=== PATIENT | female | born 1995 | race Caucasian/White ===

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

== ENCOUNTER → 2017-05-07 | Outpatient (CLI) | payer OTHER | END | disposition home or self-care (01) | LOC: C.LABSPEC 10:46 | PROVIDERS: ATTEND Physician Assistant | DX: Z01.419 Encounter for gynecological examination (general) (routine) without abnormal findings (principal) ==

== ENCOUNTER → 2017-08-19 | Outpatient (CLI) | payer OTHER | END | disposition home or self-care (01) | LOC: C.LAB1850 10:07 | PROVIDERS: ATTEND Obstetrics & Gynecology | DX: R39.9 Unspecified symptoms and signs involving the genitourinary system (principal) ==

== ENCOUNTER 2024-09-21 15:21 | Inpatient (IN) ==
[2024-09-21] MEDS ORDERED: ACETAMINOPHEN 325 MG TAB PO PRN (15:42)
[2024-09-21] MEDS ORDERED: LIDOCAINE 1% LOCAL 20 ML VIAL INFIL PRN (15:42)
[2024-09-21] MEDS ORDERED: CALCIUM CARBONATE 500 MG CHEWABLE TAB PO PRN (15:42)
[2024-09-21] MEDS ORDERED: DINOPROSTONE 10 MG INSERT PV ONE (15:42)
[2024-09-21] MEDS ORDERED: OXYTOCIN 30 UNITS/NSS 30 UNITS/500 ML BAG IV PRN (15:42)
[2024-09-21 16:22] LABS: Hematocrit (blood only) 38.7 % (37.0-47.0); Hemoglobin 12.9 g/dl (12.0-16.0); Mean Corpuscular Hemoglobin 27.5 pg (25.0-34.0); Mean Corpuscular Hgb Conc 33.3 g/dL (32.0-36.0); Mean Corpuscular Volume 82.5 fL (80.0-100.0); Mean Platelet Volume 10.3 fL (9.4-12.4); Platelet Count 260 K/uL (130-400); RDW Coefficient of Variation 13.1 % (11.5-14.5); RDW Standard Deviation 38.6 fL (36.4-46.3); Red Blood Count 4.69 M/uL (4.20-5.40); White Blood Count 11.76 K/ul (4.8-10.8)
[2024-09-21 16:38] LABS: Albumin Globulin Ratio 1.1 (0.9-2); Albumin Level 3.6 gm/dl (3.4-5.0); BUN Creatinine Ratio 15.1 (10-20); Bilirubin,Total 0.3 mg/dl (0.2-1.0); Calcium 9.4 mg/dl (8.6-10.3); Creatinine Clr Calc Pharmacy 148.3 ml/min; Globulin 3.2 gm/dl (2.5-4.0); Potassium 3.7 mmol/L (3.5-5.1); Total Protein 6.8 gm/dl (6.0-8.3)
--- NOTE | 2024-09-21 16:49 | History & Physical Report ---
Date of Service September 21, 2024 Assessment & Plan (1) Post-term , 40-42 weeks of gestation: Plan: 29-year-old at 40 weeks and 2 days of gestation, presenting today for scheduled induction of labor for postdates, Vital signs stable afebrile, GBS negative, heart rate reassuring, Cervix favorable, early labor Plan to admit, monitor, labs, start oxytocin per protocol, discussed what to expect, All questions were answered. (2) Encounter for induction of labor: Admission and Anticipated Discharge Date Admission Date: September 21, 2024 History of Present Illness Primary Care Provider: Ale Acuna MD Patient is a 29-year-old at 40 weeks and 2 days of gestation who was scheduled for induction of labor for postdates. She has no complaints other than being nervous. She denies contractions, leakage of fluid, vaginal bleeding. She reports good movements. She denies chest pain, shortness of breath, palpitations, headaches, change in her vision, nausea vomiting, abdominal pain. Her has been uncomplicated. GBS negative Allergies Allergy/AdvReac Type Severity Reaction Status Date / Time No Known Drug Allergies Allergy Verified 12/17/22 15:18 Home Medications Medication Instructions Recorded Confirmed Type PNV no.[id number] 1 tab PO DAILY 02/18/22 09/21/24 History [ Gummies] Patient History Surgical History Hx of oral surgery Hx of brain surgery benign tumor age 7 Family History Grandfather (Paternal) Cardiac disorder Grandfather (Maternal) Diabetes Grandmother (Maternal) Diabetes Mother Thyroid condition Father Heart disease Denies family history of Ovarian cancer Prostate cancer Breast cancer Colorectal cancer Social History Smoking Status: Never smoker Do You Dip or Chew Tobacco: No; Hx Alcohol Use: No Hx Substance Use: No Preferred Language: Slovak Communication Ability: Effective Visual Impairment: No Limitations Hearing Ability: Normal 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 Required: No Beliefs That Will Affect Care: None marital status: Current Living Situation: Spouse current occupational status: employed 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 Other Information That Helps Us Care for You: No Feels Safe at Home: Yes Safety Concerns: Feels Safe At This Time Dental Care, Regularly: Yes Physical Activity Frequency: 1-2 Times per Week Seatbelt Use: always Assistive Devices: Contacts SHOE PACKER History no history of STDs, no history of chlamydia, gonorrhea, herpes Review of Systems as per Subjective / HPI Physical Exam Constitutional: WD/WN, vitals as above well developed, well nourished and comfortable Genitourinary: normal external appearance OB Exam Abdomen: + vertex Manual OB Exam: + cervical dilation 4 cm, + cervical effacement 70% and + s tation ( Bulging bag) -1 OB Exam Monitor Tracing: + external uterine monitor used and + category I Results & Data Vital Signs (Past 12 Hours) Vital Signs Temp Pulse Resp BP Pulse Ox 09/21/24 16:41 115 H 97 09/21/24 15:59 120 H 95 09/21/24 15:54 127 H 95 09/21/24 15:51 36.8 C 121 H 22 129/83 100 09/21/24 15:49 96 09/21/24 15:49 122 H 09/21/24 15:49 121 H 129/83 93 09/21/24 15:44 140 H 95 Laboratory Results Lab Results 09/21/24 Range/Units 16:08 WBC 11.76 H (4.8-10.8) K/ul RBC 4.69 (4.20-5.40) M/uL Hgb 12.9 (12.0-16.0) g/dl Hct 38.7 (37.0-47.0) % MCV 82.5 (80.0-100.0) fL MCH 27.5 (25.0-34.0) pg MCHC 33.3 (32.0-36.0) g/dL RDW Std Deviation 38.6 (36.4-46.3) fL RDW Coeff of [place] 13.1 (11.5-14.5) % Plt Count 260 (130-400) K/uL MPV 10.3 (9.4-12.4) fL Sodium 137 (136-145) mmol/L Potassium 3.7 (3.5-5.1) mmol/L Chloride 105 (98-107) mmol/L Carbon Dioxide 23 (21-32) mmol/L Anion Gap 9 (3-11) BUN 8 (6-23) mg/dl Creatinine 0.53 L (0.6-1.2) mg/dl Est Cr Clr Drug Dosing 148.3 ml/min eGFR 129.92 BUN/Creatinine Ratio 15.1 (10-20) Glucose 104 H (70-99(Fasting)) mg/dl Calcium 9.4 (8.6-10.3) mg/dl Total Bilirubin 0.3 (0.2-1.0) mg/dl AST 24 (13-39) U/L ALT 23 (7-52) U/L Alkaline Phosphatase 151 H (34-104) U/L Total Protein 6.8 (6.0-8.3) gm/dl Albumin 3.6 (3.4-5.0) gm/dl Globulin 3.2 (2.5-4.0) gm/dl Albumin/Globulin Ratio 1.1 (0.9-2)
[2024-09-21] MEDS: LACTATED RINGER'S 1,000 ML IV PRN (17:31)
--- NOTE | 2024-09-21 18:46 | Obstetrical Progress Note ---
Date of Service September 21, 2024 Assessment & Plan Admission and Anticipated Discharge Date Admission Date: September 21, 2024 Subjective Patient decided to hold on oxytocin for now and she wants to ambulate. Her pulse has been tachycardic over 120s most of the time, we will obtain an EKG which was sinus tachycardia, cannot rule out anterior infarct, abnormal EKG. I spoke with hospitalist he recommended high-sensitivity troponin, if it is elevated he recommends cardiology consultation. Orders are placed for the blood work, Continue to monitor closely Results & Data Vital Signs (Past 12 Hours) Vital Signs Temp Pulse Resp BP Pulse Ox 09/21/24 18:21 118 H 98 09/21/24 18:16 116 H 98 09/21/24 18:11 109 H 99 09/21/24 18:06 122 H 98 09/21/24 18:01 113 H 98 09/21/24 17:56 121 H 99 09/21/24 17:50 112 H 99 09/21/24 17:45 115 H 98 09/21/24 17:40 111 H 98 09/21/24 17:35 114 H 99 09/21/24 17:30 120 H 99 09/21/24 17:25 137 H 99 09/21/24 17:20 113 H 97 09/21/24 17:15 119 H 98 09/21/24 17:10 116 H 98 09/21/24 17:05 119 H 99 09/21/24 17:00 112 H 99 09/21/24 16:51 127 H 98 09/21/24 16:46 126 H 97 09/21/24 16:41 115 H 97 09/21/24 15:59 120 H 95 09/21/24 15:54 36.8 C 127 H 95 09/21/24 15:51 36.8 C 121 H 22 129/83 100 09/21/24 15:49 96 09/21/24 15:49 122 H 09/21/24 15:49 121 H 129/83 93 09/21/24 15:44 140 H 95
[2024-09-21 19:12] LABS: Troponin I High Sensitivity 3.6 pg/ml (0-14)
[2024-09-21] MEDS: OXYTOCIN 30 UNITS/NSS 30 UNITS/500 ML BAG IV PRN (21:22)
--- NOTE | 2024-09-21 21:24 | Obstetrical Progress Note ---
Date of Service September 21, 2024 Assessment & Plan Admission and Anticipated Discharge Date Admission Date: September 21, 2024 Subjective Patient has ambulated in the hallways. No symptoms of chest pain, shortness of breath, palpitations. She still does not feel contractions or abdominal pain. Her troponin level came back normal. she ate her dinner and feels better. Vaginal exam is 4-5 cm, 70%, head -1, bulging bag. She wanted to hold on oxytocin until now. Now asking options we talked about expectant management versus augmentation with oxytocin versus p.o. Cytotec, monitoring, ambulation with each methods. After long discussion she decided to start oxytocin per protocol. She plans to have epidural when she feels pain. All questions were answered. Continue monitor closely. Results & Data Vital Signs (Past 12 Hours) Vital Signs Temp Pulse Resp BP Pulse Ox 09/21/24 21:17 121 H 142/90 H 09/21/24 19:54 105 H 18 129/81 09/21/24 19:46 122 H 96 09/21/24 19:41 120 H 98 09/21/24 19:36 121 H 97 09/21/24 19:31 113 H 98 09/21/24 19:26 111 H 98 09/21/24 18:21 118 H 98 09/21/24 18:16 116 H 98 09/21/24 18:11 109 H 99 09/21/24 18:06 122 H 98 09/21/24 18:01 113 H 98 09/21/24 17:56 121 H 99 09/21/24 17:50 112 H 99 09/21/24 17:45 115 H 98 09/21/24 17:40 111 H 98 09/21/24 17:35 114 H 99 09/21/24 17:30 120 H 99 09/21/24 17:25 137 H 99 09/21/24 17:20 113 H 97 09/21/24 17:15 119 H 98 09/21/24 17:10 116 H 98 09/21/24 17:05 119 H 99 09/21/24 17:00 112 H 99 09/21/24 16:51 127 H 98 09/21/24 16:46 126 H 97 09/21/24 16:41 115 H 97 09/21/24 15:59 120 H 95 09/21/24 15:54 36.8 C 127 H 95 09/21/24 15:51 36.8 C 121 H 22 129/83 100 09/21/24 15:49 96 09/21/24 15:49 122 H 09/21/24 15:49 121 H 129/83 93 09/21/24 15:44 140 H 95
[2024-09-22] MEDS ORDERED: BUPIVACAINE 0.25% PF 30 ML VIAL EPI PRN (00:57)
[2024-09-22] MEDS ORDERED: NALOXONE HCL 0.4 MG/1 ML VIAL/CARP IV PRN (00:57)
[2024-09-22] MEDS ORDERED: NALOXONE HCL 1 MG in SODIUM CHLORIDE 0.9% 1,000 ML IV PRN (00:57)
[2024-09-22] MEDS ORDERED: LIDOCAINE 2% MPF LOCAL 5 ML VIAL EPI PRN (00:57)
[2024-09-22] MEDS ORDERED: fentaNYL citrate PF 100 MCG/2 ML VIAL EPI PRN (00:57)
[2024-09-22] MEDS ORDERED: ePHEDrine sulfate 50 MG/ML AMP IV PRN (00:57)
[2024-09-22] MEDS ORDERED: ONDANSETRON INJ 2 MG/ML 2 ML VIAL IV PRN ×2 (00:57→23:41)
[2024-09-22] MEDS ORDERED: diphenhydrAMINE 50 MG/ML VIAL IV PRN (00:57)
[2024-09-22] MEDS ORDERED: ROPIVACAINE 0.5% PF 5 MG/ML 20 ML VIAL EPI PRN (00:57)
[2024-09-22] MEDS ORDERED: NALBUPHINE HCL INJ 10 MG/ML AMP IV PRN (00:57)
[2024-09-22] MEDS ORDERED: SODIUM CHLORIDE 0.9% PF INJ 10 ML VIAL EPI PRN (00:57)
--- NOTE | 2024-09-22 01:43 | Anesthesiology Consultation ---
Date of Service September 22, 2024 Assessment & Plan (1) Encounter for pre-operative examination: Chart Review Chart Review: Patient NOT seen in Pre Admission Testing and Acceptable Risk for Labor Epidural Consults Requested none History Height/Weight Height: 5 ft 2 in Weight: 72.121 kg Allergies Allergy/AdvReac Type Severity Reaction Status Date / Time No Known Drug Allergies Allergy Verified 12/17/22 15:18 Medications Home Medications Medication Instructions Recorded Confirmed Last Taken PNV no.[id number] 1 tab PO DAILY 02/18/22 09/21/24 09/21/24 [ Gummies] Active Medications Generic Name Dose Route Start Last Admin Trade Name Freq PRN Reason Stop Dose Admin Lactated Ringer's 1,000 mls @ 125 mls/hr 09/21/24 15:42 09/22/24 01:22 Lr IV 09/23/24 15:41 125 mls/hr .Q8H PRN Infusion L&D Protocol Protocol Oxytocin 30 units in 500 mls @ 14 mls/hr 09/21/24 17:23 09/22/24 00:30 Pitocin 30 Units/Nss IV 09/23/24 17:22 0.84 units/hr .Q24H PRN 14 mls/hr Labor Induction/Augmentation Titration Protocol 0.84 UNITS/HR Past Medical History Medical History (Updated 09/22/24 @ 01:43 by Manoj Devries MD) Encounter for pre-operative examination Tachycardia Exercise / Class Metabolic Activity II 4-5 Yardwork/Stairs/Walk up hill Past Family History Family History Grandfather (Paternal) Cardiac disorder Grandfather (Maternal) Diabetes Grandmother (Maternal) Diabetes Mother Thyroid condition Father Heart disease Denies family history of Ovarian cancer Prostate cancer Breast cancer Colorectal cancer Past Surgical History Surgical History Hx of oral surgery Hx of brain surgery benign tumor age 7 Social History Smoking Status: Never smoker Do You Dip or Chew Tobacco: No Hx Alcohol Use: No Alcohol Intake Frequency Comment: Prior to Hx Substance Use: No substance use type: does not use Physical Exam Vital Signs Last Vital Signs Temp 36.8 C 09/21/24 23:23 Pulse 92 H 09/22/24 02:14 Resp 18 09/22/24 01:23 BP 136/83 09/22/24 02:14 Pulse Ox 98 09/22/24 02:12 Testing Laboratory Results 09/21/24 16:08 09/21/24 16:08
[2024-09-22] MEDS: BUPIVACAINE 0.25% PF 30 ML VIAL ONE (02:15)
[2024-09-22] MEDS: LIDOCAINE 2%/EPINEPHRINE 1:200,000 20 ML PF ONE (02:15)
[2024-09-22] MEDS: fentaNYL citrate PF 100 MCG/2 ML VIAL ONE (02:16)
[2024-09-22] MEDS: fentANYL 2 MCG/ML BUPIVacaine 0.125%-NSS 100ML BAG ONE (02:17)
[2024-09-22] MEDS: ePHEDrine sulfate 50 MG/ML AMP ONE (06:33)
[2024-09-22] MEDS: SODIUM CHLORIDE 0.9% PF INJ 10 ML VIAL ONE (06:33)
--- NOTE | 2024-09-22 10:13 | Labor Progress Brief Note ---
Date of Service September 22, 2024 Assessment & Plan Admission and Anticipated Discharge Date Admission Date: September 21, 2024 Physical Exam Genitourinary: Manual OB Exam: + cervical dilation 6 cm, + cervical effacement 90%, + station -2 and + amniotic fluid clear OB Exam Monitor Tracing: + external FHT monitor used, + external uterine monitor used, + category I and + normal FHT variability Amni-hook used to break forebag with clear fluid noted Results & Data Vital Signs (Past 12 Hours) Vital Signs Temp Pulse Resp BP Pulse Ox 09/22/24 10:07 143 H 98 09/22/24 10:02 117 H 99 09/22/24 10:01 116 H 123/76 09/22/24 09:57 121 H 99 09/22/24 09:52 99 H 97 09/22/24 09:47 95 H 96 09/22/24 09:44 100 H 111/64 09/22/24 09:42 101 H 97 09/22/24 09:37 99 H 98 09/22/24 09:32 98 H 98 09/22/24 09:29 108 H 107/61 09/22/24 09:27 104 H 97 09/22/24 09:22 111 H 99 09/22/24 09:17 111 H 98 09/22/24 09:14 101 H 109/63 09/22/24 09:12 112 H 99 09/22/24 09:07 116 H 98 09/22/24 09:02 112 H 97 09/22/24 09:00 16 09/22/24 09:00 36.9 C 16 09/22/24 08:59 100 H 110/63 09/22/24 08:57 104 H 96 09/22/24 08:52 105 H 98 09/22/24 08:47 122 H 97 09/22/24 08:44 104 H 113/69 09/22/24 08:42 97 H 98 09/22/24 08:37 95 H 97 09/22/24 08:32 106 H 97 09/22/24 08:31 110 H 109/72 09/22/24 08:28 87 94 09/22/24 08:27 98 H 95 09/22/24 08:22 105 H 96 09/22/24 08:17 91 H 96 09/22/24 08:15 92 H 103/65 09/22/24 08:12 90 96 09/22/24 08:07 87 95 09/22/24 08:02 114 H 98 09/22/24 08:00 97 H 20 110/70 09/22/24 07:57 107 H 96 09/22/24 07:52 105 H 95 09/22/24 07:47 109 H 96 09/22/24 07:45 113 H 116/72 09/22/24 07:42 102 H 96 09/22/24 07:37 126 H 97 09/22/24 07:32 80 95 09/22/24 07:29 81 114/67 09/22/24 07:27 86 95 09/22/24 07:22 83 95 09/22/24 07:17 85 96 09/22/24 07:15 93 H 118/75 09/22/24 07:12 117 H 98 09/22/24 07:07 103 H 97 09/22/24 07:02 36.6 C 106 H 20 98 09/22/24 06:59 95 H 119/70 09/22/24 06:57 96 H 96 09/22/24 06:52 91 H 95 09/22/24 06:47 94 H 95 09/22/24 06:45 94 H 121/67 09/22/24 06:42 96 09/22/24 06:42 88 09/22/24 06:42 81 94 09/22/24 06:37 93 H 96 09/22/24 06:32 90 96 09/22/24 06:29 99 H 119/78 09/22/24 06:27 111 H 97 09/22/24 06:22 97 H 97 09/22/24 06:17 99 H 96 09/22/24 06:12 109 H 98 09/22/24 06:11 106 H 121/70 09/22/24 06:07 86 96 09/22/24 06:05 98 H 110/59 L 09/22/24 06:04 89 94 09/22/24 06:02 89 94 09/22/24 06:00 99 H 109/58 L 09/22/24 05:58 86 94 09/22/24 05:57 88 95 09/22/24 05:56 76 109/58 L 09/22/24 05:52 79 93 09/22/24 05:51 80 108/56 L 09/22/24 05:48 80 94 09/22/24 05:47 77 94 06 05:46 76 107/55 L 09/22/24 05:42 94 09/22/24 05:42 78 06 05:42 83 107/57 L 94 09/22/24 05:37 94 09/22/24 05:37 87 06 05:37 90 94 09/22/24 05:36 85 110/62 09/22/24 05:32 82 95 09/22/24 05:31 80 94 09/22/24 05:30 82 113/60 09/22/24 05:27 94 09/22/24 05:27 84 06 05:27 81 113/61 09/22/24 05:26 79 94 09/22/24 05:22 89 97 09/22/24 05:20 87 09/22/24 05:20 85 112/59 L 94 09/22/24 05:17 95 09/22/24 05:17 79 09/22/24 05:17 86 117/62 09/22/24 05:12 81 96 09/22/24 05:11 80 119/65 09/22/24 05:07 81 97 09/22/24 05:05 86 111/63 09/22/24 05:02 94 H 97 09/22/24 05:00 83 119/65 09/22/24 04:57 96 09/22/24 04:57 93 H 09/22/24 04:57 78 94 09/22/24 04:55 36.7 C 83 114/66 09/22/24 04:52 99 09/22/24 04:52 95 H 09/22/24 04:52 78 113/61 09/22/24 04:47 81 97 09/22/24 04:46 87 112/67 09/22/24 04:42 92 H 98 09/22/24 04:40 82 113/62 09/22/24 04:37 86 96 09/22/24 04:36 96 H 114/60 09/22/24 04:32 95 09/22/24 04:32 91 H 09/22/24 04:32 103 H 102/59 L 09/22/24 04:31 99 H 94 09/22/24 04:27 97 H 95 09/22/24 04:25 112 H 09/22/24 04:25 124 H 79/52 L 94 09/22/24 04:22 106 H 97 09/22/24 04:21 129 H 92/52 L 09/22/24 04:17 106 H 98 09/22/24 04:16 94 H 102/56 L 09/22/24 04:12 84 94 09/22/24 04:11 115 H 86/47 L 09/22/24 04:08 100 H 116/63 09/22/24 04:07 103 H 97 09/22/24 04:02 97 H 109/59 L 96 09/22/24 03:57 95 09/22/24 03:57 97 H 09/22/24 03:57 96 H 93 09/22/24 03:55 123 H 95/54 L 09/22/24 03:52 95 09/22/24 03:52 100 H 09/22/24 03:52 116 H 102/58 L 09/22/24 03:47 107 H 94 09/22/24 03:46 93 H 93 09/22/24 03:45 112 H 83/48 L 09/22/24 03:42 103 H 95 09/22/24 03:41 97 H 96/52 L 09/22/24 03:38 89 93 09/22/24 03:37 100 H 96 09/22/24 03:36 102 H 95/52 L 09/22/24 03:32 92 H 95 09/22/24 03:31 120 H 83/44 L 09/22/24 03:27 91 H 94 09/22/24 03:26 116 H 90/55 L 09/22/24 03:22 115 H 97 09/22/24 03:21 107 H 115/72 09/22/24 03:17 115 H 96 09/22/24 03:16 105 H 125/75 09/22/24 03:12 105 H 97 09/22/24 03:10 86 118/69 94 09/22/24 03:07 96 09/22/24 03:07 101 H 09/22/24 03:07 86 120/68 09/22/24 03:02 94 H 118/71 95 09/22/24 02:57 98 H 126/88 98 09/22/24 02:55 16 09/22/24 02:55 36.7 C 16 09/22/24 02:52 104 H 99 09/22/24 02:50 103 H 115/63 09/22/24 02:47 86 96 09/22/24 02:46 83 119/67 09/22/24 02:42 94 H 96 09/22/24 02:41 97 H 129/75 09/22/24 02:39 95 H 94 09/22/24 02:37 96 H 95 09/22/24 02:36 88 130/81 09/22/24 02:32 105 H 97 09/22/24 02:30 89 128/79 09/22/24 02:27 100 H 97 09/22/24 02:24 100 H 123/78 09/22/24 02:22 101 H 126/77 97 09/22/24 02:20 93 H 124/75 09/22/24 02:18 106 H 133/80 09/22/24 02:17 101 H 98 09/22/24 02:16 97 H 135/84 09/22/24 02:14 92 H 136/83 09/22/24 02:12 98 09/22/24 02:12 113 H 06 02:12 105 H 130/80 09/22/24 02:07 114 H 97 09/22/24 02:02 107 H 97 09/22/24 01:57 112 H 97 09/22/24 01:52 115 H 98 09/22/24 01:47 108 H 97 09/22/24 01:42 110 H 97 09/22/24 01:37 110 H 97 09/22/24 01:32 97 H 97 09/22/24 01:27 91 H 97 09/22/24 01:23 93 H 18 118/76 09/22/24 01:22 99 H 98 09/22/24 01:17 93 H 97 09/22/24 01:12 98 H 97 09/22/24 01:07 100 H 98 09/22/24 01:02 107 H 98 09/22/24 00:22 90 120/74 09/21/24 23:23 36.8 C 88 18 120/76 09/21/24 22:24 96 H 18 121/80
[2024-09-22] MEDS: fentANYL 2 MCG/ML BUPIVacaine 0.125%-NSS 100ML BAG EPI PRN (11:41)
[2024-09-22] MEDS: LIDOCAINE 2%/EPINEPHRINE 1:200,000 20 ML PF EPI STA (12:09)
[2024-09-22] MEDS: SODIUM CHLORIDE 0.9% PF INJ 10 ML VIAL EPI STA (12:09)
[2024-09-22] MEDS: fentaNYL citrate PF 100 MCG/2 ML VIAL EPI STA (12:09)
[2024-09-22] MEDS: BUPIVACAINE 0.25% PF 30 ML VIAL EPI STA (12:09)
--- NOTE | 2024-09-22 13:53 | Labor Progress Brief Note ---
Date of Service September 22, 2024 Assessment & Plan Admission and Anticipated Discharge Date Admission Date: September 21, 2024 Physical Exam Genitourinary: Manual OB Exam: + cervical dilation 7 cm, + cervical effacement 90%, + station 0 and + amniotic fluid clear OB Exam Monitor Tracing: + external FHT monitor used, + external uterine monitor used, + category I and + normal FHT variability Results & Data Vital Signs (Past 12 Hours) Vital Signs Temp Pulse Resp BP Pulse Ox 09/22/24 13:47 106 H 98 09/22/24 13:45 113 H 123/67 09/22/24 13:42 105 H 98 09/22/24 13:37 108 H 96 09/22/24 13:32 96 H 96 09/22/24 13:30 106 H 20 111/64 09/22/24 13:27 99 H 95 09/22/24 13:22 93 H 96 09/22/24 13:17 100 H 99 09/22/24 13:16 95 H 120/75 09/22/24 13:12 103 H 97 09/22/24 13:07 104 H 99 09/22/24 13:02 101 H 99 09/22/24 13:01 113 H 123/79 09/22/24 13:00 18 09/22/24 13:00 36.7 C 18 09/22/24 12:57 102 H 98 09/22/24 12:52 117 H 100 09/22/24 12:47 104 H 99 09/22/24 12:45 110 H 126/89 09/22/24 12:42 110 H 98 09/22/24 12:37 107 H 98 09/22/24 12:32 104 H 99 09/22/24 12:30 20 09/22/24 12:30 87 20 112/68 09/22/24 12:28 83 94 09/22/24 12:27 81 95 09/22/24 12:23 86 94 09/22/24 12:22 90 94 09/22/24 12:17 90 95 09/22/24 12:16 90 110/72 09/22/24 12:12 90 97 09/22/24 12:07 90 95 09/22/24 12:02 83 96 09/22/24 12:00 84 18 109/68 09/22/24 11:57 94 H 96 09/22/24 11:56 89 94 09/22/24 11:52 89 95 09/22/24 11:47 91 H 96 09/22/24 11:44 96 H 115/63 09/22/24 11:42 86 96 09/22/24 11:37 99 H 97 09/22/24 11:32 111 H 99 09/22/24 11:30 108 H 20 120/77 09/22/24 11:27 100 H 99 09/22/24 11:22 103 H 97 09/22/24 11:17 102 H 98 09/22/24 11:15 81 119/73 09/22/24 11:12 81 95 09/22/24 11:07 36.6 C 09/22/24 11:07 96 H 98 09/22/24 11:02 95 H 96 09/22/24 11:01 109 H 121/65 09/22/24 10:57 117 H 98 09/22/24 10:52 101 H 95 09/22/24 10:50 97 H 94 09/22/24 10:47 100 H 96 09/22/24 10:45 103 H 107/64 09/22/24 10:42 95 H 97 09/22/24 10:37 117 H 98 09/22/24 10:32 120 H 98 09/22/24 10:30 117 H 20 114/74 09/22/24 10:27 110 H 99 09/22/24 10:22 120 H 96 09/22/24 10:17 123 H 99 09/22/24 10:15 121 H 131/84 09/22/24 10:12 129 H 98 09/22/24 10:07 143 H 98 09/22/24 10:02 117 H 99 09/22/24 10:01 116 H 123/76 09/22/24 10:00 18 09/22/24 10:00 18 09/22/24 09:57 121 H 99 09/22/24 09:52 99 H 97 09/22/24 09:47 95 H 96 09/22/24 09:44 100 H 111/64 09/22/24 09:42 101 H 97 09/22/24 09:37 99 H 98 09/22/24 09:32 98 H 98 09/22/24 09:30 20 09/22/24 09:30 20 06/20/25 09:29 108 H 107/61 09/22/24 09:27 104 H 97 09/22/24 09:22 111 H 99 09/22/24 09:17 111 H 98 09/22/24 09:14 101 H 109/63 09/22/24 09:12 112 H 99 09/22/24 09:07 116 H 98 09/22/24 09:02 112 H 97 09/22/24 09:00 16 09/22/24 09:00 36.9 C 16 09/22/24 08:59 100 H 110/63 09/22/24 08:57 104 H 96 09/22/24 08:52 105 H 98 09/22/24 08:47 122 H 97 09/22/24 08:44 104 H 113/69 09/22/24 08:42 97 H 98 09/22/24 08:37 95 H 97 09/22/24 08:32 106 H 97 09/22/24 08:31 110 H 109/72 09/22/24 08:28 87 94 09/22/24 08:27 98 H 95 09/22/24 08:22 105 H 96 09/22/24 08:17 91 H 96 09/22/24 08:15 92 H 103/65 09/22/24 08:12 90 96 09/22/24 08:07 87 95 09/22/24 08:02 114 H 98 09/22/24 08:00 97 H 20 110/70 09/22/24 07:57 107 H 96 09/22/24 07:52 105 H 95 09/22/24 07:47 109 H 96 09/22/24 07:45 113 H 116/72 09/22/24 07:42 102 H 96 09/22/24 07:37 126 H 97 09/22/24 07:32 80 95 09/22/24 07:29 81 114/67 09/22/24 07:27 86 95 09/22/24 07:22 83 95 09/22/24 07:17 85 96 09/22/24 07:15 93 H 118/75 09/22/24 07:12 117 H 98 09/22/24 07:07 103 H 97 09/22/24 07:02 36.6 C 106 H 20 98 09/22/24 06:59 95 H 119/70 09/22/24 06:57 96 H 96 09/22/24 06:52 91 H 95 09/22/24 06:47 94 H 95 09/22/24 06:45 94 H 121/67 09/22/24 06:42 96 09/22/24 06:42 88 09/22/24 06:42 81 94 09/22/24 06:37 93 H 96 09/22/24 06:32 90 96 09/22/24 06:29 99 H 119/78 09/22/24 06:27 111 H 97 09/22/24 06:22 97 H 97 09/22/24 06:17 99 H 96 09/22/24 06:12 109 H 98 09/22/24 06:11 106 H 121/70 09/22/24 06:07 86 96 09/22/24 06:05 98 H 110/59 L 09/22/24 06:04 89 94 09/22/24 06:02 89 94 09/22/24 06:00 99 H 109/58 L 09/22/24 05:58 86 94 09/22/24 05:57 88 95 09/22/24 05:56 76 109/58 L 09/22/24 05:52 79 93 09/22/24 05:51 80 108/56 L 09/22/24 05:48 80 94 09/22/24 05:47 77 94 09/22/24 05:46 76 107/55 L 09/22/24 05:42 94 09/22/24 05:42 78 09/22/24 05:42 83 107/57 L 94 09/22/24 05:37 94 09/22/24 05:37 87 09/22/24 05:37 90 94 09/22/24 05:36 85 110/62 09/22/24 05:32 82 95 09/22/24 05:31 80 94 09/22/24 05:30 82 113/60 09/22/24 05:27 94 09/22/24 05:27 84 09/22/24 05:27 81 113/61 09/22/24 05:26 79 94 09/22/24 05:22 89 97 09/22/24 05:20 87 09/22/24 05:20 85 112/59 L 94 09/22/24 05:17 95 09/22/24 05:17 79 06 05:17 86 117/62 09/22/24 05:12 81 96 09/22/24 05:11 80 119/65 09/22/24 05:07 81 97 09/22/24 05:05 86 111/63 09/22/24 05:02 94 H 97 09/22/24 05:00 83 119/65 09/22/24 04:57 96 09/22/24 04:57 93 H 09/22/24 04:57 78 94 09/22/24 04:55 36.7 C 83 114/66 09/22/24 04:52 99 09/22/24 04:52 95 H 09/22/24 04:52 78 113/61 09/22/24 04:47 81 97 09/22/24 04:46 87 112/67 09/22/24 04:42 92 H 98 09/22/24 04:40 82 113/62 09/22/24 04:37 86 96 09/22/24 04:36 96 H 114/60 09/22/24 04:32 95 09/22/24 04:32 91 H 09/22/24 04:32 103 H 102/59 L 09/22/24 04:31 99 H 94 09/22/24 04:27 97 H 95 09/22/24 04:25 112 H 09/22/24 04:25 124 H 79/52 L 94 09/22/24 04:22 106 H 97 09/22/24 04:21 129 H 92/52 L 09/22/24 04:17 106 H 98 09/22/24 04:16 94 H 102/56 L 09/22/24 04:12 84 94 09/22/24 04:11 115 H 86/47 L 09/22/24 04:08 100 H 116/63 09/22/24 04:07 103 H 97 09/22/24 04:02 97 H 109/59 L 96 09/22/24 03:57 95 09/22/24 03:57 97 H 09/22/24 03:57 96 H 93 09/22/24 03:55 123 H 95/54 L 09/22/24 03:52 95 09/22/24 03:52 100 H 09/22/24 03:52 116 H 102/58 L 09/22/24 03:47 107 H 94 09/22/24 03:46 93 H 93 09/22/24 03:45 112 H 83/48 L 09/22/24 03:42 103 H 95 09/22/24 03:41 97 H 96/52 L 09/22/24 03:38 89 93 09/22/24 03:37 100 H 96 09/22/24 03:36 102 H 95/52 L 09/22/24 03:32 92 H 95 09/22/24 03:31 120 H 83/44 L 09/22/24 03:27 91 H 94 09/22/24 03:26 116 H 90/55 L 09/22/24 03:22 115 H 97 09/22/24 03:21 107 H 115/72 09/22/24 03:17 115 H 96 09/22/24 03:16 105 H 125/75 09/22/24 03:12 105 H 97 09/22/24 03:10 86 118/69 94 09/22/24 03:07 96 09/22/24 03:07 101 H 09/22/24 03:07 86 120/68 09/22/24 03:02 94 H 118/71 95 09/22/24 02:57 98 H 126/88 98 09/22/24 02:55 16 09/22/24 02:55 36.7 C 16 09/22/24 02:52 104 H 99 09/22/24 02:50 103 H 115/63 09/22/24 02:47 86 96 09/22/24 02:46 83 119/67 09/22/24 02:42 94 H 96 09/22/24 02:41 97 H 129/75 09/22/24 02:39 95 H 94 09/22/24 02:37 96 H 95 09/22/24 02:36 88 130/81 09/22/24 02:32 105 H 97 09/22/24 02:30 89 128/79 09/22/24 02:27 100 H 97 09/22/24 02:24 100 H 123/78 09/22/24 02:22 101 H 126/77 97 09/22/24 02:20 93 H 124/75 09/22/24 02:18 106 H 133/80 09/22/24 02:17 101 H 98 09/22/24 02:16 97 H 135/84 09/22/24 02:14 92 H 136/83 09/22/24 02:12 98 09/22/24 02:12 113 H 09/22/24 02:12 105 H 130/80 09/22/24 02:07 114 H 97 09/22/24 02:02 107 H 97 09/22/24 01:57 112 H 97
--- NOTE | 2024-09-22 17:20 | Labor Progress Brief Note ---
Date of Service September 22, 2024 Assessment & Plan Admission and Anticipated Discharge Date Admission Date: September 21, 2024 Physical Exam Genitourinary: Manual OB Exam: + cervical dilation 9 cm and 10 cm, + cervical effacement 100% and + station 0 OB Exam Monitor Tracing: + external FHT monitor used, + external uterine monitor used, + category I and + normal FHT variability Results & Data Vital Signs (Past 12 Hours) Vital Signs Temp Pulse Resp BP Pulse Ox 09/22/24 17:15 116 H 125/79 09/22/24 17:13 98 09/22/24 17:13 107 H 09/22/24 17:13 115 H 91 09/22/24 17:08 111 H 98 09/22/24 17:03 110 H 98 09/22/24 17:00 115 H 113/71 09/22/24 16:58 118 H 99 09/22/24 16:53 117 H 97 09/22/24 16:48 115 H 97 09/22/24 16:44 115 H 107/76 09/22/24 16:43 102 H 96 09/22/24 16:38 105 H 97 09/22/24 16:33 114 H 98 09/22/24 16:30 100 H 18 121/76 09/22/24 16:28 101 H 96 09/22/24 16:23 103 H 96 09/22/24 16:18 102 H 98 09/22/24 16:15 104 H 125/78 09/22/24 16:13 108 H 97 09/22/24 16:08 114 H 100 09/22/24 16:03 119 H 98 09/22/24 16:00 18 09/22/24 16:00 18 09/22/24 15:59 96 H 123/80 09/22/24 15:58 101 H 98 09/22/24 15:53 100 H 98 09/22/24 15:48 92 H 97 09/22/24 15:46 101 H 121/83 09/22/24 15:43 100 H 99 09/22/24 15:38 102 H 98 09/22/24 15:33 94 H 99 09/22/24 15:31 90 127/80 09/22/24 15:30 20 09/22/24 15:30 20 09/22/24 15:28 94 H 98 09/22/24 15:23 93 H 99 09/22/24 15:18 91 H 99 09/22/24 15:15 88 120/82 09/22/24 15:13 96 H 98 09/22/24 15:08 99 H 98 09/22/24 15:02 112 H 98 09/22/24 15:00 20 09/22/24 15:00 36.7 C 20 09/22/24 14:59 90 109/62 09/22/24 14:57 97 H 95 09/22/24 14:54 91 H 94 09/22/24 14:52 97 H 94 09/22/24 14:49 98 H 94 09/22/24 14:47 99 H 95 09/22/24 14:44 99 H 117/67 09/22/24 14:42 94 H 96 09/22/24 14:37 93 H 96 09/22/24 14:32 98 H 98 09/22/24 14:30 104 H 20 123/72 09/22/24 14:27 102 H 99 09/22/24 14:22 98 H 97 09/22/24 14:17 97 H 97 09/22/24 14:14 92 H 115/61 09/22/24 14:12 99 H 98 09/22/24 14:07 111 H 100 09/22/24 14:02 103 H 99 09/22/24 14:00 109 H 105/65 09/22/24 13:57 105 H 99 09/22/24 13:52 109 H 98 09/22/24 13:47 106 H 98 09/22/24 13:45 113 H 123/67 09/22/24 13:42 105 H 98 09/22/24 13:37 108 H 96 09/22/24 13:32 96 H 96 09/22/24 13:30 106 H 20 111/64 09/22/24 13:27 99 H 95 09/22/24 13:22 93 H 96 09/22/24 13:17 100 H 99 09/22/24 13:16 95 H 120/75 09/22/24 13:12 103 H 97 09/22/24 13:07 104 H 99 09/22/24 13:02 101 H 99 09/22/24 13:01 113 H 123/79 09/22/24 13:00 18 09/22/24 13:00 36.7 C 18 09/22/24 12:57 102 H 98 09/22/24 12:52 117 H 100 09/22/24 12:47 104 H 99 09/22/24 12:45 110 H 126/89 09/22/24 12:42 110 H 98 09/22/24 12:37 107 H 98 09/22/24 12:32 104 H 99 09/22/24 12:30 20 09/22/24 12:30 87 20 112/68 09/22/24 12:28 83 94 09/22/24 12:27 81 95 09/22/24 12:23 86 94 09/22/24 12:22 90 94 09/22/24 12:17 90 95 09/22/24 12:16 90 110/72 09/22/24 12:12 90 97 09/22/24 12:07 90 95 09/22/24 12:02 83 96 09/22/24 12:00 84 18 109/68 09/22/24 11:57 94 H 96 09/22/24 11:56 89 94 09/22/24 11:52 89 95 09/22/24 11:47 91 H 96 09/22/24 11:44 96 H 115/63 09/22/24 11:42 86 96 09/22/24 11:37 99 H 97 09/22/24 11:32 111 H 99 09/22/24 11:30 108 H 20 120/77 09/22/24 11:27 100 H 99 09/22/24 11:22 103 H 97 09/22/24 11:17 102 H 98 09/22/24 11:15 81 119/73 09/22/24 11:12 81 95 09/22/24 11:07 36.6 C 09/22/24 11:07 96 H 98 09/22/24 11:02 95 H 96 09/22/24 11:01 109 H 121/65 09/22/24 10:57 117 H 98 09/22/24 10:52 101 H 95 09/22/24 10:50 97 H 94 09/22/24 10:47 100 H 96 09/22/24 10:45 103 H 107/64 09/22/24 10:42 95 H 97 09/22/24 10:37 117 H 98 09/22/24 10:32 120 H 98 09/22/24 10:30 117 H 20 114/74 09/22/24 10:27 110 H 99 09/22/24 10:22 120 H 96 09/22/24 10:17 123 H 99 09/22/24 10:15 121 H 131/84 09/22/24 10:12 129 H 98 09/22/24 10:07 143 H 98 09/22/24 10:02 117 H 99 09/22/24 10:01 116 H 123/76 09/22/24 10:00 18 09/22/24 10:00 18 09/22/24 09:57 121 H 99 09/22/24 09:52 99 H 97 09/22/24 09:47 95 H 96 09/22/24 09:44 100 H 111/64 09/22/24 09:42 101 H 97 09/22/24 09:37 99 H 98 09/22/24 09:32 98 H 98 09/22/24 09:30 20 09/22/24 09:30 20 09/22/24 09:29 108 H 107/61 09/22/24 09:27 104 H 97 09/22/24 09:22 111 H 99 09/22/24 09:17 111 H 98 09/22/24 09:14 101 H 109/63 09/22/24 09:12 112 H 99 09/22/24 09:07 116 H 98 09/22/24 09:02 112 H 97 09/22/24 09:00 16 09/22/24 09:00 36.9 C 16 09/22/24 08:59 100 H 110/63 09/22/24 08:57 104 H 96 09/22/24 08:52 105 H 98 09/22/24 08:47 122 H 97 09/22/24 08:44 104 H 113/69 09/22/24 08:42 97 H 98 09/22/24 08:37 95 H 97 09/22/24 08:32 106 H 97 09/22/24 08:31 110 H 109/72 09/22/24 08:28 87 94 09/22/24 08:27 98 H 95 09/22/24 08:22 105 H 96 09/22/24 08:17 91 H 96 09/22/24 08:15 92 H 103/65 09/22/24 08:12 90 96 09/22/24 08:07 87 95 09/22/24 08:02 114 H 98 09/22/24 08:00 97 H 20 110/70 09/22/24 07:57 107 H 96 09/22/24 07:52 105 H 95 09/22/24 07:47 109 H 96 09/22/24 07:45 113 H 116/72 09/22/24 07:42 102 H 96 09/22/24 07:37 126 H 97 09/22/24 07:32 80 95 09/22/24 07:29 81 114/67 09/22/24 07:27 86 95 09/22/24 07:22 83 95 09/22/24 07:17 85 96 09/22/24 07:15 93 H 118/75 09/22/24 07:12 117 H 98 09/22/24 07:07 103 H 97 09/22/24 07:02 36.6 C 106 H 20 98 09/22/24 06:59 95 H 119/70 09/22/24 06:57 96 H 96 09/22/24 06:52 91 H 95 09/22/24 06:47 94 H 95 09/22/24 06:45 94 H 121/67 09/22/24 06:42 96 09/22/24 06:42 88 09/22/24 06:42 81 94 09/22/24 06:37 93 H 96 09/22/24 06:32 90 96 09/22/24 06:29 99 H 119/78 09/22/24 06:27 111 H 97 09/22/24 06:22 97 H 97 09/22/24 06:17 99 H 96 09/22/24 06:12 109 H 98 09/22/24 06:11 106 H 121/70 09/22/24 06:07 86 96 09/22/24 06:05 98 H 110/59 L 09/22/24 06:04 89 94 09/22/24 06:02 89 94 09/22/24 06:00 99 H 109/58 L 09/22/24 05:58 86 94 09/22/24 05:57 88 95 09/22/24 05:56 76 109/58 L 09/22/24 05:52 79 93 09/22/24 05:51 80 108/56 L 09/22/24 05:48 80 94 09/22/24 05:47 77 94 09/22/24 05:46 76 107/55 L 09/22/24 05:42 94 09/22/24 05:42 78 09/22/24 05:42 83 107/57 L 94 09/22/24 05:37 94 09/22/24 05:37 87 09/22/24 05:37 90 94 09/22/24 05:36 85 110/62 09/22/24 05:32 82 95 09/22/24 05:31 80 94 09/22/24 05:30 82 113/60 09/22/24 05:27 94 09/22/24 05:27 84 09/22/24 05:27 81 113/61 09/22/24 05:26 79 94 09/22/24 05:22 89 97 09/22/24 05:20 87 09/22/24 05:20 85 112/59 L 94
--- NOTE | 2024-09-22 21:14 | History & Physical Report ---
Date of Service September 22, 2024 Assessment & Plan (1) Cephalopelvic disproportion due to generally contracted pelvis: Plan section for delivery Admission and Anticipated Discharge Date Admission Date: September 21, 2024 History of Present Illness Chief Complaint: Intrauterine 40 weeks 3 days gestation. Arrest of labor secondary to cephalopelvic disproportion Primary Care Provider: Ale Acuna MD Patient is 29-year-old 1 para 0 had an uneventful course. is well dated with a first trimester ultrasound. Her due date is September 19, 2024. She was admitted over 24 hours ago in active labor 4 cm dilated. After about 3 to 4 hours in the hospital she was augmented with IV Pitocin. Despite maximum use of IV Pitocin. She had arrest of labor at 9 cm. This arrest lasted for over 4 to 5 hours. Despite the use of maximum Pitocin. It was an arrest of dilatation of the cervix. An arrest of descent at approximately 0 station. Large amount of molding was present. Allergies Allergy/AdvReac Type Severity Reaction Status Date / Time No Known Drug Allergies Allergy Verified 12/17/22 15:18 Home Medications Medication Instructions Recorded Confirmed Type PNV [id number] 1 tab PO DAILY 02/18/22 09/21/24 History [ Gummies] Past Med/Surg History Problem List (Updated 09/22/24 @ 21:14 by Johnnie Camarena MD) Cephalopelvic disproportion due to generally contracted pelvis Encounter for induction of labor Post-term , 40-42 weeks of gestation Abnormal electrocardiography COVID (Acute) Insomnia (Acute) Palpitations (Acute) Medical History (Updated 09/22/24 @ 21:14 by Johnnie Camarena MD) Encounter for pre-operative examination Tachycardia Surgical History Hx of oral surgery Hx of brain surgery benign tumor age 7 Family History Grandfather (Paternal) Cardiac disorder Grandfather (Maternal) Diabetes Grandmother (Maternal) Diabetes Mother Thyroid condition Father Heart disease Denies family history of Ovarian cancer Prostate cancer Breast cancer Colorectal cancer Social History (Reviewed 09/21/24 @ 17:02 marilyn Joyce Smoking Status: Never smoker Do You Dip or Chew Tobacco: No; Hx Alcohol Use: No Hx Substance Use: No Preferred Language: Thai Communication Ability: Effective Visual Impairment: No Limitations Hearing Ability: Normal Laser Engraver Required: No Beliefs That Will Affect Care: None marital status: Current Living Situation: Spouse current occupational status: employed 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 Heart had a regular rhythm S1 and S2 are normal. Lungs are clear to auscultation percussion. Trachea was midline there was no cervical adenopathy. Abdomen revealed an estimated weight of over 8 pounds. There was no abdominal tenderness. No CVA tenderness. There was no calf tenderness. Pelvic exam revealed a vertex presentation. 0 station. Large amount of molding cervix 9 cm dilated 100% effaced. Results & Data Results & Data Vital Signs (Past 12 Hours) Vital Signs Temp Pulse Resp BP Pulse Ox 09/22/24 21:03 127 H 98 09/22/24 21:01 123 H 136/88 09/22/24 20:58 134 H 98 09/22/24 20:53 137 H 98 09/22/24 20:48 126 H 98 09/22/24 20:47 36.9 C 18 09/22/24 20:45 112 H 133/81 09/22/24 20:43 113 H 95 09/22/24 20:38 117 H 98 09/22/24 20:33 125 H 97 09/22/24 20:30 111 H 132/81 09/22/24 20:28 123 H 98 09/22/24 20:23 139 H 98 09/22/24 20:18 109 H 98 09/22/24 20:15 120 H 133/89 09/22/24 20:13 117 H 96 09/22/24 20:08 121 H 98 09/22/24 20:03 108 H 99 09/22/24 20:00 113 H 133/72 09/22/24 19:58 119 H 98 06/20/25 19:53 104 H 99 09/22/24 19:48 104 H 97 09/22/24 19:45 103 H 117/69 09/22/24 19:43 112 H 98 09/22/24 19:38 94 H 98 09/22/24 19:33 36.8 C 18 09/22/24 19:33 100 H 97 09/22/24 19:31 95 H 116/72 09/22/24 19:28 104 H 99 09/22/24 19:23 93 H 98 09/22/24 19:18 100 H 99 09/22/24 19:14 96 H 131/76 09/22/24 19:13 97 H 99 09/22/24 19:08 108 H 99 09/22/24 19:03 99 09/22/24 19:03 111 H 09/22/24 19:03 108 H 134/77 09/22/24 19:00 101 H 18 129/77 09/22/24 18:58 101 H 97 09/22/24 18:53 110 H 99 09/22/24 18:48 109 H 99 09/22/24 18:44 108 H 130/82 09/22/24 18:43 109 H 99 09/22/24 18:38 115 H 98 09/22/24 18:33 117 H 98 09/22/24 18:30 105 H 20 133/86 09/22/24 18:28 105 H 97 09/22/24 18:23 100 H 98 09/22/24 18:19 104 H 129/75 09/22/24 18:18 102 H 99 09/22/24 18:13 102 H 97 09/22/24 18:08 105 H 99 09/22/24 18:03 100 H 99 09/22/24 18:00 37.1 C 100 H 18 135/86 09/22/24 17:58 102 H 97 09/22/24 17:53 110 H 97 09/22/24 17:48 104 H 98 09/22/24 17:46 107 H 121/79 06 17:43 106 H 98 06 17:42 112 H 90 06 17:38 113 H 99 09/22/24 17:33 111 H 100 09/22/24 17:30 117 H 126/84 09/22/24 17:28 118 H 99 09/22/24 17:23 110 H 99 09/22/24 17:18 112 H 96 09/22/24 17:15 116 H 125/79 09/22/24 17:13 98 09/22/24 17:13 107 H 09/22/24 17:13 115 H 91 09/22/24 17:08 111 H 98 09/22/24 17:03 110 H 98 09/22/24 17:00 115 H 113/71 09/22/24 16:58 118 H 99 09/22/24 16:53 117 H 97 09/22/24 16:48 115 H 97 09/22/24 16:44 115 H 107/76 09/22/24 16:43 102 H 96 09/22/24 16:38 105 H 97 09/22/24 16:33 114 H 98 09/22/24 16:30 100 H 18 121/76 09/22/24 16:28 101 H 96 09/22/24 16:23 103 H 96 09/22/24 16:18 102 H 98 09/22/24 16:15 104 H 125/78 09/22/24 16:13 108 H 97 09/22/24 16:08 114 H 100 09/22/24 16:03 119 H 98 09/22/24 16:00 18 09/22/24 16:00 18 09/22/24 15:59 96 H 123/80 09/22/24 15:58 101 H 98 09/22/24 15:53 100 H 98 09/22/24 15:48 92 H 97 09/22/24 15:46 101 H 121/83 09/22/24 15:43 100 H 99 09/22/24 15:38 102 H 98 09/22/24 15:33 94 H 99 09/22/24 15:31 90 127/80 09/22/24 15:30 20 09/22/24 15:30 20 09/22/24 15:28 94 H 98 09/22/24 15:23 93 H 99 09/22/24 15:18 91 H 99 09/22/24 15:15 88 120/82 09/22/24 15:13 96 H 98 09/22/24 15:08 99 H 98 09/22/24 15:02 112 H 98 09/22/24 15:00 20 09/22/24 15:00 36.7 C 20 09/22/24 14:59 90 109/62 09/22/24 14:57 97 H 95 09/22/24 14:54 91 H 94 09/22/24 14:52 97 H 94 09/22/24 14:49 98 H 94 09/22/24 14:47 99 H 95 09/22/24 14:44 99 H 117/67 09/22/24 14:42 94 H 96 09/22/24 14:37 93 H 96 09/22/24 14:32 98 H 98 09/22/24 14:30 104 H 20 123/72 09/22/24 14:27 102 H 99 09/22/24 14:22 98 H 97 09/22/24 14:17 97 H 97 09/22/24 14:14 92 H 115/61 09/22/24 14:12 99 H 98 09/22/24 14:07 111 H 100 09/22/24 14:02 103 H 99 09/22/24 14:00 109 H 105/65 09/22/24 13:57 105 H 99 09/22/24 13:52 109 H 98 09/22/24 13:47 106 H 98 09/22/24 13:45 113 H 123/67 09/22/24 13:42 105 H 98 09/22/24 13:37 108 H 96 09/22/24 13:32 96 H 96 09/22/24 13:30 106 H 20 111/64 09/22/24 13:27 99 H 95 09/22/24 13:22 93 H 96 09/22/24 13:17 100 H 99 09/22/24 13:16 95 H 120/75 09/22/24 13:12 103 H 97 09/22/24 13:07 104 H 99 09/22/24 13:02 101 H 99 09/22/24 13:01 113 H 123/79 09/22/24 13:00 18 09/22/24 13:00 36.7 C 18 09/22/24 12:57 102 H 98 09/22/24 12:52 117 H 100 09/22/24 12:47 104 H 99 09/22/24 12:45 110 H 126/89 09/22/24 12:42 110 H 98 09/22/24 12:37 107 H 98 09/22/24 12:32 104 H 99 09/22/24 12:30 20 09/22/24 12:30 87 20 112/68 09/22/24 12:28 83 94 09/22/24 12:27 81 95 09/22/24 12:23 86 94 09/22/24 12:22 90 94 09/22/24 12:17 90 95 09/22/24 12:16 90 110/72 09/22/24 12:12 90 97 09/22/24 12:07 90 95 09/22/24 12:02 83 96 09/22/24 12:00 84 18 109/68 09/22/24 11:57 94 H 96 09/22/24 11:56 89 94 09/22/24 11:52 89 95 09/22/24 11:47 91 H 96 09/22/24 11:44 96 H 115/63 09/22/24 11:42 86 96 09/22/24 11:37 99 H 97 09/22/24 11:32 111 H 99 09/22/24 11:30 108 H 20 120/77 09/22/24 11:27 100 H 99 09/22/24 11:22 103 H 97 09/22/24 11:17 102 H 98 09/22/24 11:15 81 119/73 09/22/24 11:12 81 95 09/22/24 11:07 36.6 C 09/22/24 11:07 96 H 98 09/22/24 11:02 95 H 96 09/22/24 11:01 109 H 121/65 09/22/24 10:57 117 H 98 09/22/24 10:52 101 H 95 09/22/24 10:50 97 H 94 09/22/24 10:47 100 H 96 09/22/24 10:45 103 H 107/64 09/22/24 10:42 95 H 97 09/22/24 10:37 117 H 98 09/22/24 10:32 120 H 98 09/22/24 10:30 117 H 20 114/74 09/22/24 10:27 110 H 99 09/22/24 10:22 120 H 96 09/22/24 10:17 123 H 99 09/22/24 10:15 121 H 131/84 09/22/24 10:12 129 H 98 09/22/24 10:07 143 H 98 09/22/24 10:02 117 H 99 09/22/24 10:01 116 H 123/76 09/22/24 10:00 18 09/22/24 10:00 18 09/22/24 09:57 121 H 99 09/22/24 09:52 99 H 97 09/22/24 09:47 95 H 96 09/22/24 09:44 100 H 111/64 09/22/24 09:42 101 H 97 09/22/24 09:37 99 H 98 09/22/24 09:32 98 H 98 09/22/24 09:30 20 09/22/24 09:30 20 09/22/24 09:29 108 H 107/61 09/22/24 09:27 104 H 97 09/22/24 09:22 111 H 99 09/22/24 09:17 111 H 98 09/22/24 09:14 101 H 109/63 09/22/24 09:12 112 H 99 Diagnostic Findings Arrest of labor secondary to cephalopelvic disproportion
[2024-09-22] MEDS: CITRIC ACID/SODIUM CITRATE 15 ML UDC PO SCH (21:55)
[2024-09-22] MEDS: cefOXitin 2,000 MG in DEXTROSE 5 % MINI-B 50 ML IV SCH (21:55)
[2024-09-22] MEDS ORDERED: LIDOCAINE 2%/EPINEPHRINE 1:200,000 20 ML PF ONE (21:56)
[2024-09-22 22:02] LABS: Hematocrit (blood only) 40.4 % (37.0-47.0); Hemoglobin 13.6 g/dl (12.0-16.0); Mean Corpuscular Hgb Conc 33.7 g/dL (32.0-36.0); Mean Corpuscular Volume 83.3 fL (80.0-100.0); Mean Platelet Volume 10.4 fL (9.4-12.4); Platelet Count 242 K/uL (130-400); RDW Coefficient of Variation 12.9 % (11.5-14.5); RDW Standard Deviation 38.9 fL (36.4-46.3); Red Blood Count 4.85 M/uL (4.20-5.40); White Blood Count 21.01 K/ul (4.8-10.8)
[2024-09-22] MEDS ORDERED: PHENYLEPHRINE HCL 25 MG/250 ML NSS IV ONE (22:13)
[2024-09-22] MEDS ORDERED: MoRPHine SULFATE PF 1 MG/ML 10 ML AMP/VIAL ONE (22:14)
[2024-09-22] MEDS ORDERED: LACTATED RINGER'S 1,000 ML IV SCH ×2 (22:30→23:45)
[2024-09-22] MEDS ORDERED: OXYTOCIN 10 UNITS/ML VIAL ONE (22:44)
[2024-09-22] MEDS ORDERED: DIPHTHER/TETAN/PERTUS Vaccine (Tdap, Adol/Adult) 0.5mL IM ONE (23:41)
[2024-09-22] MEDS ORDERED: BENZOCAINE 20% SPRY 85 APPLN/85 GM CAN EXT PRN (23:41)
[2024-09-22] MEDS ORDERED: CALCIUM CARBONATE 500 MG CHEWABLE TAB PO PRN (23:41)
[2024-09-22] MEDS ORDERED: SENNA 8.6 MG TAB PO PRN (23:41)
[2024-09-22] MEDS ORDERED: HYDROCORTISONE ACETATE 25 MG SUPP PR PRN (23:41)
[2024-09-22] MEDS ORDERED: MAGNESIUM HYDROXIDE SUSP 30 ML UDC PO PRN (23:41)
--- NOTE | 2024-09-22 23:46 | Post Operative Brief Note ---
Immediate Post Op Note Date of Surgery September 22, 2024 Pre & Post Diagnosis Operation Date: 09/22/24 22:00 Pre-Op Diagnosis: 1. Failure to progress Post-Op Diagnosis: 1. Same as preop Cephalopelvic disproportion I identified the patient and participated in the time-out.: Yes Procedure Operation Date: 09/22/24 22:00 Actual Procedures p Section in LD - Johnnie Camarena MD Surgeon Johnnie Camarena MD Emergency Room Specialist Nurse procurement assistant Estimated Blood Loss 444 Findings Consistent with Post-Op Diagnosis Direct occiput posterior position Drains Martinez Catheter (Anesthesia to monitor during proceedure) Anesthesia Type Labor Epidural Complications None
--- NOTE | 2024-09-22 23:52 | Operative Report ---
Post Operative Report Pre & Post Diagnosis Operation Date: 09/22/24 22:00 Pre-Op Diagnosis: 1. Failure to progress Post-Op Diagnosis: 1. Same as preop I identified the patient and participated in the time-out.: Yes Procedure Operation Date: 09/22/24 22:00 Actual Procedures p Section in LD - Johnnie Camarena MD Surgeon Johnnie Camarena MD Psychologist Engineering Nurse assistant drafter Estimated Blood Loss 444 Findings Consistent with Post-Op Diagnosis Direct occiput posterior position Specimens Placenta Complications None Indications Arrest of labor Description of Procedure Patient was brought to the OR correctly identified by armband conversation. Compression stockings were applied. Epidural was topped off. Lower abdomen was painted with a alcohol-based sterilizing solution draped as usual sterile fashion. Timeout was taken to identify the patient. Adequacy of the epidural was tested and found to be adequate. A Pfannenstiel incision was made and carried down to the anterior fascia by sharp dissection. Hemostasis was secured by electrocauterization. The fascia was incised and dissected from the rectus muscle. Rectus muscles were in the midline exposing peritoneum which was carefully raised and entered. A retractor was placed in the uterine incision to provide adequate exposure. The bladder flap was identified. An incision was carried above the bladder flap. The bladder was undermined bluntly pushed out of the lower uterine segment. An incision was made in the lower uterine segment. Then entered bluntly with the scissors. Clear amniotic fluid was seen at this time. Was also noted that the was direct occiput posterior at this time. Operators hand was inserted into the uterine cavity. The then rotated spontaneously into an occiput anterior position. With fundal pressure the infant was delivered. breathing cried spontaneously. Cord was allowed to pulse for 1 minute. It was then clamped and cut. was delivered to the spanish lecturer who is scrubbed and present at the time of delivery. Cord blood was taken. The placenta was removed manually. Uterus was brought out through the incision. The uterine defect was delineated with 4 short ring forceps. The myometrial defect was then approximated with a continuous interlocking suture of heavy chromic. Then a horizontal suture of heavy Vicryl was placed over the myometrial approximation. And this approximated the fascial layer over the musculature layer. Following this hemostasis was good. The peritoneal edges and bladder flap was then restored with a running plain suture. Everything was hemostatic. Uterus tubes and ovaries were reinserted into the abdominal cavity. A careful anatomical approximation of the anterior abdominal wall was performed. Peritoneum was closed with a running chromic gut suture. Recti muscles were approximated interrupted [id number] suture chromic catgut. Fascia was closed with continuous interlocking suture of Vicryl approximated from each edge to the middle. Subcu was approximated with a running plain. Skin edges were approximated with staple clips. Patient tolerated procedure well. I attest to the content of the Intraoperative Record and any orders documented therein. Any exceptions are noted below.
[2024-09-23] MEDS ORDERED: oxyCODONE HCL IR 5 MG TAB (IMMEDIATE RELEASE) PO PRN ×2 (00:01→18:00)
[2024-09-23] MEDS ORDERED: MoRPHine SULFATE PF 1 MG/ML 10 ML AMP/VIAL INT SPINAL ONE (00:01)
[2024-09-23] MEDS ORDERED: LACTATED RINGER'S 500 ML IV PRN (00:01)
[2024-09-23] MEDS ORDERED: MEPERIDINE HCL 25 MG/ML CARP/VIAL IV PRN (00:01)
[2024-09-23] MEDS ORDERED: NALBUPHINE HCL INJ 10 MG/ML AMP IV PRN (00:01)
[2024-09-23] MEDS ORDERED: NALOXONE HCL 0.08 MG in SYRINGE 1.8 ML IV PRN (00:01)
[2024-09-23] MEDS ORDERED: MoRPHine SULFATE 2 MG/ML CARP IV PRN (00:01)
[2024-09-23] MEDS ORDERED: ACETAMINOPHEN 1,000 MG/100 ML VIAL IV PRN (00:01)
[2024-09-23] MEDS ORDERED: KETOROLAC 30 MG/ML VIAL IV PRN ×2 (00:01→23:41)
[2024-09-23] MEDS ORDERED: NALOXONE HCL 1 MG in SODIUM CHLORIDE 0.9% 1,000 ML IV PRN (00:01)
[2024-09-23] MEDS ORDERED: diphenhydrAMINE 50 MG/ML VIAL IV PRN ×2 (00:01→18:00)
[2024-09-23] MEDS ORDERED: PROMETHAZINE 6.25 MG/50.25 ML BAG IV PRN (00:01)
[2024-09-23] MEDS ORDERED: ePHEDrine sulfate 50 MG/ML AMP IV PRN (00:01)
[2024-09-23] MEDS ORDERED: ONDANSETRON INJ 2 MG/ML 2 ML VIAL IV PRN (00:01)
[2024-09-23] MEDS ORDERED: NALOXONE HCL 0.4 MG/1 ML VIAL/CARP IV PRN (00:01)
[2024-09-23] MEDS ORDERED: HYDROmorphone INJ 0.5 MG/0.5 ML SYR IV PRN ×2 (00:01→18:00)
[2024-09-23] MEDS: KETOROLAC 30 MG/ML VIAL IV SCH (00:03)
[2024-09-23] MEDS: OXYTOCIN 20 UNITS/LR 1,002 ML IV SCH (00:03)
--- NOTE | 2024-09-23 00:04 | Anesthesia Procedure Note ---
Date of Service September 23, 2024 Anesthesia Post Epidural Note Vital Signs Vital Signs: Temp Pulse Resp BP Pulse Ox 36.9 C 101 H 18 120/57 L 98 09/22/24 21:05 09/23/24 00:01 09/22/24 21:05 09/23/24 00:01 09/23/24 00:00 Notes Mental Status: alert / awake / arousable Nausea / Vomiting: adequately controlled Pain: adequately controlled Airway Patency, RR, SpO2: stable & adequate BP & HR: stable & adequate Hydration State: stable & adequate Neuraxial Anesthesia: was administered and sensory block is resolving Anesthetic Complications: no major complications apparent and Pt Satisfied with anesthetic care Epidural: Removed without complications and With tip intact
[2024-09-23] MEDS ORDERED: NO NARCOTICS OR SEDATIVES SCH (00:15)
[2024-09-23] MEDS ORDERED: SODIUM CHLORIDE 0.9% 1,000 ML IV SCH (00:15)
[2024-09-23] MEDS ORDERED: DC INTRASPINAL MORPHINE SCH (00:15)
[2024-09-23] MEDS: ACETAMINOPHEN 500 MG TAB PO ONE (00:19)
--- NOTE | 2024-09-23 01:27 | Anesthesiology Progress Note ---
Date of Service September 23, 2024 Anesthesia Post Procedure Vital Signs Vital Signs: Temp Pulse Resp BP Pulse Ox 09/23/24 01:25 117 H 96 09/23/24 01:20 118 H 96 09/23/24 01:15 124 H 97 09/23/24 01:10 118 H 97 09/23/24 01:05 118 H 98 09/23/24 01:01 121 H 131/86 09/23/24 01:00 126 H 97 09/23/24 00:55 121 H 96 09/23/24 00:51 97 H 129/75 09/23/24 00:50 18 09/23/24 00:50 107 H 97 09/23/24 00:45 102 H 97 09/23/24 00:41 96 H 123/76 09/23/24 00:40 18 09/23/24 00:40 103 H 97 09/23/24 00:35 109 H 97 09/23/24 00:31 118 H 115/66 09/23/24 00:30 18 09/23/24 00:30 120 H 96 09/23/24 00:25 120 H 97 09/23/24 00:21 125 H 120/56 L 09/23/24 00:20 18 09/23/24 00:20 122 H 97 09/23/24 00:19 117 H 94 09/23/24 00:15 110 H 98 09/23/24 00:11 104 H 124/66 09/23/24 00:10 18 09/23/24 00:10 101 H 97 09/23/24 00:06 107 H 122/64 09/23/24 00:05 109 H 99 09/23/24 00:01 101 H 120/57 L 09/23/24 00:00 37.1 C 18 09/23/24 00:00 103 H 98 09/22/24 23:55 116 H 98 09/22/24 23:53 115 H 119/57 L 09/22/24 23:52 117 H 180/68 H 09/22/24 23:50 117 H 100 09/22/24 22:13 129 H 98 09/22/24 22:08 119 H 97 09/22/24 22:03 120 H 97 09/22/24 21:58 111 H 96 09/22/24 21:53 107 H 97 09/22/24 21:48 116 H 95 09/22/24 21:43 116 H 98 09/22/24 21:38 110 H 97 09/22/24 21:33 114 H 97 09/22/24 21:29 108 H 133/83 09/22/24 21:28 115 H 97 09/22/24 21:23 120 H 98 06 21:18 122 H 98 09/22/24 21:16 123 H 140/91 09/22/24 21:13 126 H 98 09/22/24 21:08 123 H 98 09/22/24 21:05 18 09/22/24 21:05 36.9 C 18 09/22/24 21:03 127 H 98 09/22/24 21:01 123 H 136/88 09/22/24 20:58 134 H 98 09/22/24 20:53 137 H 98 09/22/24 20:48 126 H 98 09/22/24 20:47 36.9 C 18 09/22/24 20:45 112 H 133/81 09/22/24 20:43 113 H 95 09/22/24 20:38 117 H 98 09/22/24 20:33 125 H 97 09/22/24 20:30 111 H 132/81 09/22/24 20:28 123 H 98 09/22/24 20:23 139 H 98 09/22/24 20:18 109 H 98 09/22/24 20:15 120 H 133/89 09/22/24 20:13 117 H 96 09/22/24 20:08 121 H 98 09/22/24 20:03 108 H 99 09/22/24 20:00 113 H 133/72 09/22/24 19:58 119 H 98 09/22/24 19:53 104 H 99 09/22/24 19:48 104 H 97 09/22/24 19:45 103 H 117/69 09/22/24 19:43 112 H 98 09/22/24 19:38 94 H 98 09/22/24 19:33 36.8 C 18 09/22/24 19:33 100 H 97 09/22/24 19:31 95 H 116/72 09/22/24 19:28 104 H 99 09/22/24 19:23 93 H 98 09/22/24 19:18 100 H 99 0620/25 19:14 96 H 131/76 09/22/24 19:13 97 H 99 09/22/24 19:08 108 H 99 09/22/24 19:03 99 09/22/24 19:03 111 H 09/22/24 19:03 108 H 134/77 09/22/24 19:00 101 H 18 129/77 09/22/24 18:58 101 H 97 09/22/24 18:53 110 H 99 09/22/24 18:48 109 H 99 09/22/24 18:44 108 H 130/82 09/22/24 18:43 109 H 99 09/22/24 18:38 115 H 98 09/22/24 18:33 117 H 98 09/22/24 18:30 105 H 20 133/86 09/22/24 18:28 105 H 97 09/22/24 18:23 100 H 98 09/22/24 18:19 104 H 129/75 09/22/24 18:18 102 H 99 09/22/24 18:13 102 H 97 09/22/24 18:08 105 H 99 09/22/24 18:03 100 H 99 09/22/24 18:00 37.1 C 100 H 18 135/86 09/22/24 17:58 102 H 97 09/22/24 17:53 110 H 97 09/22/24 17:48 104 H 98 09/22/24 17:46 107 H 121/79 09/22/24 17:43 106 H 98 09/22/24 17:42 112 H 90 09/22/24 17:38 113 H 99 09/22/24 17:33 111 H 100 09/22/24 17:30 117 H 126/84 09/22/24 17:28 118 H 99 09/22/24 17:23 110 H 99 09/22/24 17:18 112 H 96 09/22/24 17:15 116 H 125/79 09/22/24 17:13 98 09/22/24 17:13 107 H 09/22/24 17:13 115 H 91 09/22/24 17:08 111 H 98 09/22/24 17:03 110 H 98 09/22/24 17:00 115 H 113/71 09/22/24 16:58 118 H 99 09/22/24 16:53 117 H 97 09/22/24 16:48 115 H 97 09/22/24 16:44 115 H 107/76 09/22/24 16:43 102 H 96 09/22/24 16:38 105 H 97 09/22/24 16:33 114 H 98 09/22/24 16:30 100 H 18 121/76 09/22/24 16:28 101 H 96 09/22/24 16:23 103 H 96 09/22/24 16:18 102 H 98 09/22/24 16:15 104 H 125/78 09/22/24 16:13 108 H 97 09/22/24 16:08 114 H 100 09/22/24 16:03 119 H 98 09/22/24 16:00 18 09/22/24 16:00 18 09/22/24 15:59 96 H 123/80 09/22/24 15:58 101 H 98 09/22/24 15:53 100 H 98 09/22/24 15:48 92 H 97 09/22/24 15:46 101 H 121/83 09/22/24 15:43 100 H 99 09/22/24 15:38 102 H 98 09/22/24 15:33 94 H 99 09/22/24 15:31 90 127/80 09/22/24 15:30 20 09/22/24 15:30 20 09/22/24 15:28 94 H 98 09/22/24 15:23 93 H 99 09/22/24 15:18 91 H 99 09/22/24 15:15 88 120/82 09/22/24 15:13 96 H 98 09/22/24 15:08 99 H 98 09/22/24 15:02 112 H 98 09/22/24 15:00 20 09/22/24 15:00 36.7 C 20 09/22/24 14:59 90 109/62 09/22/24 14:57 97 H 95 09/22/24 14:54 91 H 94 09/22/24 14:52 97 H 94 09/22/24 14:49 98 H 94 09/22/24 14:47 99 H 95 09/22/24 14:44 99 H 117/67 09/22/24 14:42 94 H 96 09/22/24 14:37 93 H 96 09/22/24 14:32 98 H 98 09/22/24 14:30 104 H 20 123/72 09/22/24 14:27 102 H 99 09/22/24 14:22 98 H 97 09/22/24 14:17 97 H 97 09/22/24 14:14 92 H 115/61 09/22/24 14:12 99 H 98 09/22/24 14:07 111 H 100 09/22/24 14:02 103 H 99 09/22/24 14:00 109 H 105/65 09/22/24 13:57 105 H 99 09/22/24 13:52 109 H 98 09/22/24 13:47 106 H 98 09/22/24 13:45 113 H 123/67 09/22/24 13:42 105 H 98 09/22/24 13:37 108 H 96 09/22/24 13:32 96 H 96 09/22/24 13:30 106 H 20 111/64 09/22/24 13:27 99 H 95 09/22/24 13:22 93 H 96 09/22/24 13:17 100 H 99 09/22/24 13:16 95 H 120/75 09/22/24 13:12 103 H 97 09/22/24 13:07 104 H 99 09/22/24 13:02 101 H 99 09/22/24 13:01 113 H 123/79 09/22/24 13:00 18 09/22/24 13:00 36.7 C 18 09/22/24 12:57 102 H 98 09/22/24 12:52 117 H 100 09/22/24 12:47 104 H 99 09/22/24 12:45 110 H 126/89 09/22/24 12:42 110 H 98 09/22/24 12:37 107 H 98 09/22/24 12:32 104 H 99 09/22/24 12:30 20 09/22/24 12:30 87 20 112/68 09/22/24 12:28 83 94 09/22/24 12:27 81 95 09/22/24 12:23 86 94 09/22/24 12:22 90 94 09/22/24 12:17 90 95 09/22/24 12:16 90 110/72 09/22/24 12:12 90 97 09/22/24 12:07 90 95 09/22/24 12:02 83 96 09/22/24 12:00 84 18 109/68 09/22/24 11:57 94 H 96 09/22/24 11:56 89 94 09/22/24 11:52 89 95 09/22/24 11:47 91 H 96 09/22/24 11:44 96 H 115/63 09/22/24 11:42 86 96 09/22/24 11:37 99 H 97 09/22/24 11:32 111 H 99 09/22/24 11:30 108 H 20 120/77 09/22/24 11:27 100 H 99 09/22/24 11:22 103 H 97 09/22/24 11:17 102 H 98 09/22/24 11:15 81 119/73 09/22/24 11:12 81 95 09/22/24 11:07 36.6 C 09/22/24 11:07 96 H 98 09/22/24 11:02 95 H 96 09/22/24 11:01 109 H 121/65 09/22/24 10:57 117 H 98 09/22/24 10:52 101 H 95 09/22/24 10:50 97 H 94 09/22/24 10:47 100 H 96 09/22/24 10:45 103 H 107/64 09/22/24 10:42 95 H 97 09/22/24 10:37 117 H 98 09/22/24 10:32 120 H 98 09/22/24 10:30 117 H 20 114/74 09/22/24 10:27 110 H 99 09/22/24 10:22 120 H 96 09/22/24 10:17 123 H 99 09/22/24 10:15 121 H 131/84 09/22/24 10:12 129 H 98 09/22/24 10:07 143 H 98 09/22/24 10:02 117 H 99 09/22/24 10:01 116 H 123/76 09/22/24 10:00 18 09/22/24 10:00 18 09/22/24 09:57 121 H 99 09/22/24 09:52 99 H 97 09/22/24 09:47 95 H 96 09/22/24 09:44 100 H 111/64 09/22/24 09:42 101 H 97 09/22/24 09:37 99 H 98 09/22/24 09:32 98 H 98 09/22/24 09:30 20 09/22/24 09:30 20 09/22/24 09:29 108 H 107/61 09/22/24 09:27 104 H 97 09/22/24 09:22 111 H 99 09/22/24 09:17 111 H 98 09/22/24 09:14 101 H 109/63 09/22/24 09:12 112 H 99 09/22/24 09:07 116 H 98 09/22/24 09:02 112 H 97 09/22/24 09:00 16 09/22/24 09:00 36.9 C 16 09/22/24 08:59 100 H 110/63 09/22/24 08:57 104 H 96 09/22/24 08:52 105 H 98 09/22/24 08:47 122 H 97 09/22/24 08:44 104 H 113/69 09/22/24 08:42 97 H 98 09/22/24 08:37 95 H 97 09/22/24 08:32 106 H 97 09/22/24 08:31 110 H 109/72 09/22/24 08:28 87 94 09/22/24 08:27 98 H 95 09/22/24 08:22 105 H 96 09/22/24 08:17 91 H 96 09/22/24 08:15 92 H 103/65 09/22/24 08:12 90 96 09/22/24 08:07 87 95 09/22/24 08:02 114 H 98 09/22/24 08:00 97 H 20 110/70 09/22/24 07:57 107 H 96 09/22/24 07:52 105 H 95 09/22/24 07:47 109 H 96 09/22/24 07:45 113 H 116/72 09/22/24 07:42 102 H 96 09/22/24 07:37 126 H 97 09/22/24 07:32 80 95 09/22/24 07:29 81 114/67 09/22/24 07:27 86 95 09/22/24 07:22 83 95 09/22/24 07:17 85 96 09/22/24 07:15 93 H 118/75 09/22/24 07:12 117 H 98 09/22/24 07:07 103 H 97 09/22/24 07:02 36.6 C 106 H 20 98 09/22/24 06:59 95 H 119/70 09/22/24 06:57 96 H 96 09/22/24 06:52 91 H 95 09/22/24 06:47 94 H 95 09/22/24 06:45 94 H 121/67 09/22/24 06:42 96 09/22/24 06:42 88 09/22/24 06:42 81 94 09/22/24 06:37 93 H 96 09/22/24 06:32 90 96 09/22/24 06:29 99 H 119/78 09/22/24 06:27 111 H 97 09/22/24 06:22 97 H 97 09/22/24 06:17 99 H 96 09/22/24 06:12 109 H 98 09/22/24 06:11 106 H 121/70 09/22/24 06:07 86 96 09/22/24 06:05 98 H 110/59 L 09/22/24 06:04 89 94 09/22/24 06:02 89 94 09/22/24 06:00 99 H 109/58 L 09/22/24 05:58 86 94 09/22/24 05:57 88 95 09/22/24 05:56 76 109/58 L 09/22/24 05:52 79 93 09/22/24 05:51 80 108/56 L 09/22/24 05:48 80 94 09/22/24 05:47 77 94 09/22/24 05:46 76 107/55 L 09/22/24 05:42 94 09/22/24 05:42 78 09/22/24 05:42 83 107/57 L 94 09/22/24 05:37 94 09/22/24 05:37 87 09/22/24 05:37 90 94 09/22/24 05:36 85 110/62 09/22/24 05:32 82 95 09/22/24 05:31 80 94 09/22/24 05:30 82 113/60 09/22/24 05:27 94 09/22/24 05:27 84 09/22/24 05:27 81 113/61 09/22/24 05:26 79 94 09/22/24 05:22 89 97 09/22/24 05:20 87 06 05:20 85 112/59 L 94 09/22/24 05:17 95 09/22/24 05:17 79 06 05:17 86 117/62 09/22/24 05:12 81 96 09/22/24 05:11 80 119/65 09/22/24 05:07 81 97 09/22/24 05:05 86 111/63 09/22/24 05:02 94 H 97 09/22/24 05:00 83 119/65 09/22/24 04:57 96 09/22/24 04:57 93 H 09/22/24 04:57 78 94 09/22/24 04:55 36.7 C 83 114/66 09/22/24 04:52 99 09/22/24 04:52 95 H 09/22/24 04:52 78 113/61 09/22/24 04:47 81 97 09/22/24 04:46 87 112/67 09/22/24 04:42 92 H 98 09/22/24 04:40 82 113/62 09/22/24 04:37 86 96 09/22/24 04:36 96 H 114/60 09/22/24 04:32 95 09/22/24 04:32 91 H 09/22/24 04:32 103 H 102/59 L 09/22/24 04:31 99 H 94 09/22/24 04:27 97 H 95 09/22/24 04:25 112 H 09/22/24 04:25 124 H 79/52 L 94 09/22/24 04:22 106 H 97 09/22/24 04:21 129 H 92/52 L 09/22/24 04:17 106 H 98 09/22/24 04:16 94 H 102/56 L 09/22/24 04:12 84 94 09/22/24 04:11 115 H 86/47 L 09/22/24 04:08 100 H 116/63 09/22/24 04:07 103 H 97 09/22/24 04:02 97 H 109/59 L 96 09/22/24 03:57 95 09/22/24 03:57 97 H 09/22/24 03:57 96 H 93 09/22/24 03:55 123 H 95/54 L 09/22/24 03:52 95 09/22/24 03:52 100 H 09/22/24 03:52 116 H 102/58 L 09/22/24 03:47 107 H 94 09/22/24 03:46 93 H 93 09/22/24 03:45 112 H 83/48 L 09/22/24 03:42 103 H 95 09/22/24 03:41 97 H 96/52 L 09/22/24 03:38 89 93 09/22/24 03:37 100 H 96 09/22/24 03:36 102 H 95/52 L 09/22/24 03:32 92 H 95 09/22/24 03:31 120 H 83/44 L 09/22/24 03:27 91 H 94 09/22/24 03:26 116 H 90/55 L 09/22/24 03:22 115 H 97 09/22/24 03:21 107 H 115/72 09/22/24 03:17 115 H 96 09/22/24 03:16 105 H 125/75 09/22/24 03:12 105 H 97 09/22/24 03:10 86 118/69 94 09/22/24 03:07 96 09/22/24 03:07 101 H 09/22/24 03:07 86 120/68 09/22/24 03:02 94 H 118/71 95 09/22/24 02:57 98 H 126/88 98 09/22/24 02:55 16 09/22/24 02:55 36.7 C 16 09/22/24 02:52 104 H 99 09/22/24 02:50 103 H 115/63 09/22/24 02:47 86 96 09/22/24 02:46 83 119/67 09/22/24 02:42 94 H 96 09/22/24 02:41 97 H 129/75 09/22/24 02:39 95 H 94 09/22/24 02:37 96 H 95 09/22/24 02:36 88 130/81 09/22/24 02:32 105 H 97 09/22/24 02:30 89 128/79 09/22/24 02:27 100 H 97 09/22/24 02:24 100 H 123/78 09/22/24 02:22 101 H 126/77 97 09/22/24 02:20 93 H 124/75 09/22/24 02:18 106 H 133/80 09/22/24 02:17 101 H 98 09/22/24 02:16 97 H 135/84 09/22/24 02:14 92 H 136/83 09/22/24 02:12 98 09/22/24 02:12 113 H 09/22/24 02:12 105 H 130/80 09/22/24 02:07 114 H 97 09/22/24 02:02 107 H 97 09/22/24 01:57 112 H 97 09/22/24 01:52 115 H 98 09/22/24 01:47 108 H 97 09/22/24 01:42 110 H 97 09/22/24 01:37 110 H 97 09/22/24 01:32 97 H 97 Pain Intensity Bilateral Abdomen: Pain Intensity: 3 Transfer of Care Handoff Completed per policy Notes Mental Status: alert / awake / arousable and participated in evaluation Nausea / Vomiting: adequately controlled Pain: adequately controlled Airway Patency, RR, SpO2: stable & adequate BP & HR: stable & adequate Hydration State: stable & adequate Neuraxial Anesthesia: was administered and sensory block is resolving Anesthetic Complications: no major complications apparent and Pt Satisfied with anesthetic care
[2024-09-23] MEDS: LACTATED RINGER'S 1,000 ML IV SCH (02:30)
[2024-09-23] MEDS: OXYTOCIN 10 UNITS/ML 10ML VIAL IM ONE (02:31)
[2024-09-23] MEDS: ACETAMINOPHEN 325 MG TAB PO SCH (06:25)
[2024-09-23 07:14] LABS: Basophils # (auto) 0.04 K/uL (0.00-0.20); Basophils % (auto) 0.2 %; Eosinophils # (auto) 0.02 K/uL (0.00-0.50); Eosinophils % (auto) 0.1 %; Hematocrit (blood only) 33.1 % (37.0-47.0); Hemoglobin 11.1 g/dl (12.0-16.0); Immature Granulocytes % (auto) 0.9 %; Lymphocytes # (auto) 1.35 K/uL (1.20-3.40); Lymphocytes % (auto) 6.3 %; Mean Corpuscular Hemoglobin 28.1 pg (25.0-34.0); Mean Corpuscular Hgb Conc 33.5 g/dL (32.0-36.0); Mean Corpuscular Volume 83.8 fL (80.0-100.0); Mean Platelet Volume 10.6 fL (9.4-12.4); Monocytes # (auto) 1.71 K/uL (0.11-0.59); Monocytes % (auto) 7.9 %; Neutrophils # (auto) 18.28 K/uL (1.40-6.50); Neutrophils % (auto) 84.6 %; Platelet Count 231 K/uL (130-400); RDW Standard Deviation 39.8 fL (36.4-46.3); Red Blood Count 3.95 M/uL (4.20-5.40)
[2024-09-23] MEDS: SIMETHICONE 80 MG CHEW PO SCH (09:30)
[2024-09-23] MEDS: DOCUSATE SODIUM 100 MG CAP PO SCH (09:30)
[2024-09-23] MEDS: FERROUS SULFATE 325 MG TAB PO SCH (09:30)
[2024-09-23] MEDS: PRENATAL VITAMIN 1 TAB PO SCH (09:30)
--- NOTE | 2024-09-23 10:18 | Obstetrical Progress Note ---
Date of Service September 23, 2024 Assessment & Plan Admission and Anticipated Discharge Date Admission Date: September 21, 2024 Subjective abdomen soft and non tender bandage removed incision is clean and dry bowel sounds present no calf tenderness vaginal bleeding scant hgb 11.1 Results & Data Vital Signs (Past 12 Hours) Vital Signs Temp Pulse Resp BP Pulse Ox 09/23/24 07:45 18 96 09/23/24 05:00 16 94 09/23/24 04:00 18 94 09/23/24 03:00 16 95 09/23/24 02:50 18 95 09/23/24 02:10 115 H 96 09/23/24 02:05 118 H 94 09/23/24 02:03 118 H 136/83 09/23/24 02:02 116 H 94 09/23/24 02:00 37.0 C 18 09/23/24 02:00 112 H 96 09/23/24 01:55 115 H 97 09/23/24 01:50 116 H 97 09/23/24 01:45 112 H 96 09/23/24 01:40 123 H 96 09/23/24 01:35 113 H 95 09/23/24 01:33 110 H 135/67 09/23/24 01:30 18 09/23/24 01:30 18 09/23/24 01:30 123 H 96 09/23/24 01:25 117 H 96 09/23/24 01:20 118 H 96 09/23/24 01:15 124 H 97 09/23/24 01:10 118 H 97 09/23/24 01:05 118 H 98 09/23/24 01:01 121 H 131/86 09/23/24 01:00 18 09/23/24 01:00 126 H 97 09/23/24 00:55 121 H 96 09/23/24 00:51 97 H 129/75 09/23/24 00:50 18 09/23/24 00:50 18 09/23/24 00:50 107 H 97 09/23/24 00:45 102 H 97 09/23/24 00:41 96 H 123/76 09/23/24 00:40 18 09/23/24 00:40 103 H 97 09/23/24 00:35 109 H 97 09/23/24 00:31 118 H 115/66 09/23/24 00:30 18 09/23/24 00:30 120 H 96 09/23/24 00:25 120 H 97 09/23/24 00:21 125 H 120/56 L 09/23/24 00:20 18 09/23/24 00:20 122 H 97 09/23/24 00:19 117 H 94 09/23/24 00:15 110 H 98 09/23/24 00:11 104 H 124/66 09/23/24 00:10 18 09/23/24 00:10 101 H 97 09/23/24 00:06 107 H 122/64 09/23/24 00:05 109 H 99 09/23/24 00:01 101 H 120/57 L 09/23/24 00:00 37.1 C 18 09/23/24 00:00 103 H 98 09/22/24 23:55 116 H 98 09/22/24 23:53 115 H 119/57 L 09/22/24 23:52 117 H 180/68 H 09/22/24 23:50 117 H 100
[2024-09-23] MEDS ORDERED: ZOLPIDEM TARTRATE 5 MG TAB PO PRN (18:00)
[2024-09-23] MEDS ORDERED: PROMETHAZINE 12.5 MG/50.5 ML BAG IV PRN (18:00)
[2024-09-23] MEDS ORDERED: diphenhydrAMINE Capsule 25 MG CAP PO PRN (18:00)
[2024-09-23] MEDS ORDERED: traMADol HCL 50 MG TABLET PO SCH (18:00)
[2024-09-23] MEDS: bisacodyL 5 MG TABEC PO SCH (20:59)
[2024-09-24] MEDS: IBUPROFEN 600 MG TAB PO SCH (01:00)
[2024-09-24 06:21] LABS: Hematocrit (blood only) 29.5 % (37.0-47.0); Hemoglobin 9.5 g/dl (12.0-16.0)
--- NOTE | 2024-09-24 08:14 | Obstetrical Progress Note ---
Date of Service September 24, 2024 Assessment & Plan Admission and Anticipated Discharge Date Admission Date: September 21, 2024 Subjective abdomen soft and non tender incision is clean and dry no calf tenderness ambulating well vaginal bleeding scant hgb 9.5 Results & Data Vital Signs (Past 12 Hours) Vital Signs Temp Pulse Resp BP Pulse Ox O2 Del Method 09/24/24 02:30 36.9 C 100 H 16 128/84 98 09/23/24 20:30 Room Air 09/23/24 20:30 36.4 C L 108 H 18 124/79 98
[2024-09-24] MEDS ORDERED: bisacodyL 10 MG SUPP PR PRN (23:41)
[2024-09-25 00:23] VITALS: RESP 18
[2024-09-25] MEDS: IBUPROFEN 600 MG TAB PO PRN (00:43)
[2024-09-25] MEDS: ACETAMINOPHEN 325 MG TAB PO PRN (00:43)
[2024-09-25 07:28] VITALS: TEMP 98.1; O2SAT 100
--- NOTE | 2024-09-25 09:17 | Obstetrical Progress Note ---
Date of Service September 25, 2024 Subjective Ambulation: ambulating normally Voiding: no voiding problems Passing Gas:: Yes Diet Tolerance:: regular diet Lochia:: Small Feeding Type:: breast feeding Current Pain Level(1-10): 0 doing well. plans for d/c today. Physical Exam Constitutional WD/WN, vitals as above Gastrointestinal (Abdomen) Inspection/Auscultation: abdomen normal to inspection incision c/d/i Musculoskeletal Extremities: extremities normal to inspection Skin no rashes, warm and dry Neurologic patellar DTR's 2+ bilat, sensation intact Psychiatric A+Ox3, euthymic affect Results & Data Vital Signs (Past 12 Hours) Vital Signs Temp Pulse Resp BP Pulse Ox 09/25/24 07:22 36.7 C 86 18 143/95 H 100 09/24/24 23:45 36.9 C 87 18 142/80 H 99 Laboratory Results 09/21/24 09/22/24 09/23/24 16:08 21:43 06:34 WBC 11.76 H 21.01 H 21.60 H RBC 4.69 4.85 3.95 L Hgb 12.9 13.6 11.1 L Hct 38.7 40.4 33.1 L MCV 82.5 83.3 83.8 MCH 27.5 28.0 28.1 MCHC 33.3 33.7 33.5 RDW Std Deviation 38.6 38.9 39.8 RDW Coeff of Edison 13.1 12.9 13.0 Plt Count 260 242 231 MPV 10.3 10.4 10.6 Immature Gran % (Auto) 0.9 Neut % (Auto) 84.6 Lymph % (Auto) 6.3 Merrick % (Auto) 7.9 Eos % (Auto) 0.1 Baso % (Auto) 0.2 Neut # (Auto) 18.28 H Lymph # (Auto) 1.35 Merrick # (Auto) 1.71 H Eos # (Auto) 0.02 Baso # (Auto) 0.04 Immature Gran # (Auto) 0.20 Sodium 137 Potassium 3.7 Chloride 105 Carbon Dioxide 23 Anion Gap 9 BUN 8 Creatinine 0.53 L Est Cr Clr Drug Dosing 148.3 eGFR 129.92 BUN/Creatinine Ratio 15.1 Glucose 104 H Calcium 9.4 Total Bilirubin 0.3 AST 24 ALT 23 Alkaline Phosphatase 151 H Troponin I High Sens 3.6 Total Protein 6.8 Albumin 3.6 Globulin 3.2 Albumin/Globulin Ratio 1.1 Treponema pallidum Ab Negative Negative Blood Type B Positive Antibody Screen NEGATIVE 09/24/24 06:08 WBC RBC Hgb 9.5 L Hct 29.5 L MCV MCH MCHC RDW Std Deviation RDW Coeff of Edison Plt Count MPV Immature Gran % (Auto) Neut % (Auto) Lymph % (Auto) Merrick % (Auto) Eos % (Auto) Baso % (Auto) Neut # (Auto) Lymph # (Auto) Merrick # (Auto) Eos # (Auto) Baso # (Auto) Immature Gran # (Auto) Sodium Potassium Chloride Carbon Dioxide Anion Gap BUN Creatinine Est Cr Clr Drug Dosing eGFR BUN/Creatinine Ratio Glucose Calcium Total Bilirubin AST ALT Alkaline Phosphatase Troponin I High Sens Total Protein Albumin Globulin Albumin/Globulin Ratio Treponema pallidum Ab Blood Type Antibody Screen
[2024-09-25 09:27] VITALS: BP 132/77; PULSE 90
--- NOTE | 2024-09-26 13:35 | Electrocardiogram Report ---
Test Reason : Blood Pressure : */* mmHG Vent. Rate : 115 BPM Atrial Rate : 115 BPM P-R Int : 122 ms QRS Dur : 84 ms QT Int : 324 ms P-R-T Axes : 76 68 61 degrees QTcB Int : 448 ms Sinus tachycardia Poor R-wave progression , probably lead placement Otherwise normal ECG No previous ECGs available Confirmed by Alphonse Gil [id number] on 09/26/2024 1:35:22 PM Referred By: Diana Adkins Confirmed By: Alphonse Gil
== END 2024-09-25 12:40 | disposition home or self-care (01) | DRG 788 ==
LOC: 4S1 15:21 → 4E2 09-23 02:37